=== PATIENT | female | born 1955 | race Caucasian/White ===

== ENCOUNTER 2018-02-27 15:28 | Emergency (ER) | payer MEDICAID ==
[~2018-02-27] VITALS: Ht 177.8 cm; Wt 136.4 kg
[2018-02-27] MEDS ORDERED: meperidine/PF 50mg/ml syringe IM ONE ×2 (15:50→17:10)
[2018-02-27 15:55] VITALS: BP 154/83
== END 2018-02-27 18:03 | disposition left against medical advice (07) ==
LOC: ER 15:29
DX: S80.02XA Contusion of left knee, initial encounter (principal); S80.01XA Contusion of right knee, initial encounter; S93.401A Sprain of unspecified ligament of right ankle, initial encounter; S09.90XA Unspecified injury of head, initial encounter; S16.1XXA Strain of muscle, fascia and tendon at neck level, initial encounter; G89.29 Other chronic pain; M25.551 Pain in right hip; Z88.0 Allergy status to penicillin; Z88.6 Allergy status to analgesic agent; Z88.8 Allergy status to other drugs, medicaments and biological substances; W01.198A Fall on same level from slipping, tripping and stumbling with subsequent striking against other object, initial encounter; Y93.89 Activity, other specified; Y92.89 Other specified places as the place of occurrence of the external cause; Y99.8 Other external cause status
CPT/HCPCS: 73560; 73600; 96372; 99284; J2175

== ENCOUNTER 2019-02-05 12:45 | Outpatient (CLI) | payer MEDICAID | END 2019-02-05 23:59 | disposition home or self-care (01) | LOC: RAD 12:45 | DX: R51 Headache (principal); R27.0 Ataxia, unspecified | CPT/HCPCS: 95819 ==

== ENCOUNTER 2022-11-23 16:34 | Emergency (ER) | payer MEDICARE, MEDICAID ==
[~2022-11-23] VITALS: Ht 177.8 cm; Wt 89.4 kg
[2022-11-23 16:38] VITALS: TEMP 98.1
[2022-11-23 17:21] VITALS: BP 126/86; PULSE 104; RESP 16; O2SAT 97
--- NOTE | 2022-11-23 17:40 | NUR ---
Patient to CT.
== END 2022-11-23 18:22 | disposition home or self-care (01) ==
LOC: ER 16:35
DX: S09.90XA Unspecified injury of head, initial encounter (principal); M79.7 Fibromyalgia; Z88.0 Allergy status to penicillin; Z88.8 Allergy status to other drugs, medicaments and biological substances; G89.29 Other chronic pain; W06.XXXA Fall from bed, initial encounter; Z91.81 History of falling; Y93.89 Activity, other specified; Y92.89 Other specified places as the place of occurrence of the external cause; Y99.8 Other external cause status
CPT/HCPCS: 70450; 99284